=== PATIENT | male | born 1960 | race Caucasian/White ===

== ENCOUNTER → 2017-08-21 | Day surgery (SDC) | payer BC ==
[2017-08-05 10:48] VITALS: BMI 29.0
--- NOTE | 2017-08-05 11:19 | PAT Medication Instructions ---
Service Date Aug 05, 2017. Current Home Medication List No Active Prescriptions or Reported Meds Medication Instructions For Your Scheduled Surgery No Active Prescriptions or Reported Meds-- Please contact PAT department if starting any medications prior to surgery. If you have any questions please call us at [phone] or [phone] or [phone]
[2017-08-05 12:20] LABS: BASO % 0.5 %; BASO ABS # 0.02 K/uL (0-0.2); EOS % 1.6 %; EOS ABS # 0.06 K/uL (0-0.5); HEMATOCRIT 40.1 % (42-52); HEMOGLOBIN 14.5 g/dL (14.0-18.0); IG# 0.01 K/uL (0.00-0.02); LYMPH % 28.9 %; MEAN CORPUSCULAR HEMOGLOBIN 30.7 pg (25-34); MEAN CORPUSCULAR HGB CONC 36.2 g/dl (32-36); MEAN PLATELET VOLUME 10.8 fL (7.4-10.4); MONO % 9.2 %; MONO ABS # 0.35 K/uL (0.11-0.59); NEUT % 59.5 %; NEUT ABS # 2.26 K/uL (1.4-6.5); PLATELET COUNT 156 K/uL (130-400); RED CELL DISTRIBUTION WIDTH CV 13.9 % (11.5-14.5); RED CELL DISTRIBUTION WIDTH SD 42.7 fL (36.4-46.3)
--- NOTE | 2017-08-05 12:44 | DIAGNOSTIC IMAGING REPORT ---
CHEST 2 VIEWS ROUTINE HISTORY: Preop. COMPARISON: None. FINDINGS: The lungs are clear. Cardiac silhouette is normal in size. No pleural effusions. No pneumothorax. IMPRESSION: No acute process. Electronically signed by: Braydon Osman M.D. 08/05/2017 12:42 PM Dictated Date/Time: 08/05/2017 12:41 PM
[2017-08-05 13:54] LABS: CALCIUM 9.4 mg/dl (8.5-10.1); CREATININE 1.01 mg/dl (0.60-1.40); POTASSIUM 4.7 mmol/L (3.5-5.1)
[~2017-08-21] VITALS: Ht 182.9 cm; Wt 97.4 kg
[~2017-08-21] MED LIST: ATROPINE SULFATE 0.1 MG/ML 5ML SYR IV PRN; BACITRACIN OINT 15 GM TUBE ONE; CIPR1TAB11 PO; CIPROFLOXACIN / D5W 400 MG IV SCH; CONRAY 60% 50 ML VIAL ONE; DEXAMETHASONE SOD INJ 4 MG/ML VIAL ONE; EpHEDrine SULFATE 50MG/5ML SYR ONE; EpHEDrine SULFATE INJ 50 MG/ML AMP IV PRN; FENTANYL CITRATE INJ 50 MCG/1 ML 2 ML VIAL IV PRN; FENTANYL CITRATE INJ 50 MCG/1 ML 2 ML VIAL ONE; GENTAMICIN INJ 120 MG in DEXTROSE 5% 100ML 100 ML IV SCH; GLYCOPYRROLATE INJ 0.2 MG/ML VIAL ONE; HYDROmorphone INJ 1 MG/ML SYR IV PRN; LACTATED RINGER'S 1000ML 1,000 ML IV SCH; LIDOCAINE HCL 2% 2 ML VIAL (20MG/ML) ONE; MIDAZOLAM HCL 1 MG/ML 2ML VIAL ONE; NEOSTIGMINE METHYLSULFATE 5 MG/5 ML SYR ONE; ONDANSETRON INJ 2 MG/ML 2 ML VIAL IV PRN; ONDANSETRON INJ 2 MG/ML 2 ML VIAL ONE; OXYCODONE/ACETAMINOPHEN 5-325 TAB PO PRN; PROPOFOL IV EMULSION 10 MG/ML 20 ML VIAL IV ONE; ROCURONIUM BROMIDE 10 MG/ML 5 ML VIAL IV ONE
[2017-08-21 05:57] VITALS: BP 141/76; PULSE 64; TEMP 37.1; O2SAT 97; Ht 182.9 cm; Wt 97.4 kg
--- NOTE | 2017-08-21 07:08 | History & Physical Bridge Note ---
H&P Re-Evaluation Bridge Note: I have examined the patient, reviewed the History & Physical and in the interval since the performance of the History & Physical I have noted the following changes of clinical significance: No changes noted
--- NOTE | 2017-08-21 07:23 | [facility] Post Operative Brief Note ---
Immediate Operative Summary Operative Date Aug 21, 2017. Pre-Operative Diagnosis cT1c [place] 4+3 CAP Post-Operative Diagnosis Same Procedure(s) Performed Volumetric brachytherapy of prostate Surgeon Jake Sharma; Fercho Green Mechanical Supervisor Surgeon(s) Marc Auguste Estimated Blood Loss 30 cc Findings Consistent with Post-Op Diagnosis 55 seeds via 19 needles Specimens NA Drains Larkin to gravity Anesthesia Type General Complication(s) none Disposition Accompanied Pt To Recover: no Disposition: Recovery Room / PACU
--- NOTE | 2017-08-21 07:25 | Discharge Instructions ---
Discharge Instructions Date of Service Aug 21, 2017. Admission Reason for Admission: Prostate Cancer Discharge Discharge Diagnosis / Problem: Same s/p brachytherapy Discharge Goals Goal(s): Improve disease control, Therapeutic intervention Activity Recommendations Activity Limitations: as noted below Lifting Limitations: no more than 25 pounds, gradually increase as tolerated Exercise/Sports Limitations: rest today, gradually increase as tolerated May Resume Sexual Activity: after follow-up appointment Shower/Bathe: tomorrow Driving or Machine Use: resume 1 day after discharge . Instructions / Follow-Up Instructions / Follow-Up As scheduled in office Current Hospital Diet Patient's current hospital diet: Discharge Diet Recommended Diet: Regular Diet (good fluid intake) Procedures Procedures Performed: Volumetric brachytherapy of prostate Pending Studies Studies pending at discharge: no Medical Emergencies . Who to Call and When: Medical Emergencies: If at any time you feel your situation is an emergency, please call 911 immediately. . Non-Emergent Contact Non-Emergency issues call your: Urologist Call Non-Emergent contact if: you have a fever, temperature is above 101, your pain is not controlled, your pain is worsening, your pain is unusual for you, your pain is concerning you, you have any medication questions . . "Provider Documentation" section prepared by Rich Sharma. . VTE Core Measure Inpt VTE Proph given/why not?: SCD's
--- NOTE | 2017-08-21 09:44 | [facility] Operative Report ---
Operative Report Operative Date Aug 21, 2017. Pre-Operative Diagnosis cT1c [place] 4+3 Prostate cancer Post-Operative Diagnosis Same Procedure(s) Performed Volumetric brachytherapy of prostate Surgeon Dr. Jake Sharma, Dr. Jose Green Nurse Liaison Surgeon(s) Marc Auguste Estimated Blood Loss 30 cc Findings 55 seeds via 19 needles Specimens none, as per surgeon Drains Larkin to gravity Anesthesia Type General Complication(s) none Disposition no Recovery Room / PACU Indications 57-year-old male with a new diagnosis of prostate cancer who is decided upon brachytherapy of the prostate to manage his disease. Please see H&P for further details. He is being brought into the hospital today for surgical intervention. Intravenous ciprofloxacin and gentamicin provided the patient has followed his prep. SCDs used for DVT prophylaxis. Description of Procedure Patient was properly identified and brought into the operative suite after identification of appropriate consent of the chart. General anesthesia with laryngeal mask was initiated and patient was prepped and draped in standard fashion for this procedure. Full timeout procedure was followed. Patient was placed in the high lithotomy position and a transrectal ultrasound probe was introduced to allow for visualization of the prostate and direct imaging of needle passes and seed placement. Fluoroscopy was used at the end of the case to ensure appropriate identification and location of seeds as well. A peripheral pass of 15 needles was performed and seeds implanted per radiation oncology planning with good visualization of the patient's seed location as the into the prostate. A central pass of for additional needles to complete coverage with planned boost treatment as an outpatient later was also performed. Patient tolerated the procedure well with excellent seed location and coverage of the gland. A total of 55 seeds via 19 needles were used and a 35 cc gland on today's estimate. Larkin catheter with aerated gel had been placed at the beginning of the case with contrast within the bladder. This was flushed and placed to gravity drainage. Perineal pressure was held with bacitracin ointment after cleaning the patient. Anesthesia was reversed and patient was transferred to the recovery room in stable condition. Follow-up care: Trial of void after transfer to radiation oncology for imaging today. Patient has filled his perioperative prescriptions as provided previously. Care was discussed with the patient's today per his request. I attest to the content of the Intraoperative Record and any orders documented therein. Any exceptions are noted below.
--- NOTE | 2017-08-21 10:18 | Anesthesiology Progress Note ---
Anesthesia Post Op Note Date & Time Aug 21, 2017 at 10:17 Vital Signs Pain Intensity: 0 Vital Signs Past 12 Hours Date Time Temp Pulse Resp B/P (MAP) Pulse Ox O2 Delivery O2 Flow Rate FiO2 08/21/17 10:15 36.3 87 16 135/73 96 Room Air 08/21/17 10:05 89 16 137/77 96 Room Air 08/21/17 09:55 97 16 134/81 97 Oxymask 5 08/21/17 09:48 36.2 98 16 132/78 100 Oxymask 10 08/21/17 05:57 37.1 64 18 141/76 (97) 97 Room Air Notes Mental Status: alert / awake / arousable, participated in evaluation Pt Amnestic to Procedure: Yes Nausea / Vomiting: adequately controlled Pain: adequately controlled Airway Patency, RR, SpO2: stable & adequate BP & HR: stable & adequate Hydration State: stable & adequate Anesthetic Complications: no major complications apparent
[2017-08-21 10:30] VITALS: BP 129/70; PULSE 80; TEMP 36.3; O2SAT 100
--- NOTE | 2017-08-21 11:11 | DIAGNOSTIC IMAGING REPORT ---
PELVIS POST SEED IMPLANT HISTORY: 57 years-old Male BRACHY THERAPY status post placement of brachytherapy seeds of the prostate COMPARISON: None available TECHNIQUE: Single spot fluoroscopic image of the pelvis was obtained utilizing 4.2 seconds fluoroscopy time FINDINGS: Contrast opacified urinary bladder. Round filling defect within the urinary bladder suggests Larkin catheter. Multiple brachytherapy seeds project over the expected region of the prostate. IMPRESSION: Fluoroscopic assistance as above. Please see procedural report for further details. The above report was generated using voice recognition software. It may contain grammatical, syntax or spelling errors. Electronically signed by: Nikita Nath M.D. 08/21/2017 11:09 AM Dictated Date/Time: 08/21/2017 11:08 AM
[2017-08-21 11:40] VITALS: BP 115/70; PULSE 75; TEMP 36.3; O2SAT 98
== END | disposition home or self-care (01) ==
LOC: C.ACU 04:56
PROVIDERS: ATTEND Urology
DX: C61 Malignant neoplasm of prostate (principal); Z86.711 Personal history of pulmonary embolism; Z98.890 Other specified postprocedural states; Z90.89 Acquired absence of other organs; Z87.891 Personal history of nicotine dependence

== ENCOUNTER → 2017-09-03 | Outpatient (CLI) | payer BC ==
[~2017-09-03] MED LIST changes: -ATROPINE SULFATE 0.1 MG/ML 5ML SYR IV PRN; -BACITRACIN OINT 15 GM TUBE ONE; -CIPROFLOXACIN / D5W 400 MG IV SCH; -CONRAY 60% 50 ML VIAL ONE; -DEXAMETHASONE SOD INJ 4 MG/ML VIAL ONE; -EpHEDrine SULFATE 50MG/5ML SYR ONE; -EpHEDrine SULFATE INJ 50 MG/ML AMP IV PRN; -FENTANYL CITRATE INJ 50 MCG/1 ML 2 ML VIAL IV PRN; -FENTANYL CITRATE INJ 50 MCG/1 ML 2 ML VIAL ONE; -GENTAMICIN INJ 120 MG in DEXTROSE 5% 100ML 100 ML IV SCH; -GLYCOPYRROLATE INJ 0.2 MG/ML VIAL ONE; -HYDROmorphone INJ 1 MG/ML SYR IV PRN; -LACTATED RINGER'S 1000ML 1,000 ML IV SCH; -LIDOCAINE HCL 2% 2 ML VIAL (20MG/ML) ONE; -MIDAZOLAM HCL 1 MG/ML 2ML VIAL ONE; -NEOSTIGMINE METHYLSULFATE 5 MG/5 ML SYR ONE; +No Home Meds; -ONDANSETRON INJ 2 MG/ML 2 ML VIAL IV PRN; -ONDANSETRON INJ 2 MG/ML 2 ML VIAL ONE; -OXYCODONE/ACETAMINOPHEN 5-325 TAB PO PRN; -PROPOFOL IV EMULSION 10 MG/ML 20 ML VIAL IV ONE; -ROCURONIUM BROMIDE 10 MG/ML 5 ML VIAL IV ONE
== END | disposition home or self-care (01) ==
LOC: C.LABSPEC 17:13
PROVIDERS: ATTEND Urology
DX: C61 Malignant neoplasm of prostate (principal); R30.0 Dysuria